=== PATIENT | female | born 1960 | race African-American/Black ===

== ENCOUNTER 2019-08-17 17:41 | Emergency (ER) | payer OTHER, BC ==
[2019-08-17 17:48] VITALS: BP 134/55
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
--- NOTE | 2019-08-17 21:30 | EKG REPORT ---
SEVERITY:- BORDERLINE ECG - SINUS RHYTHM BORDERLINE T ABNORMALITIES, INFERIOR LEADS : Confirmed by: Destiny Amado 17-Aug-2019 21:29:41
== END 2019-08-17 18:46 | disposition home or self-care (01) ==
LOC: ER 17:41
DX: Z04.1 Encounter for examination and observation following transport accident (principal)
CPT/HCPCS: 93005; 93010; 99284